=== PATIENT | female | born 1930 | race Caucasian/White ===

== ENCOUNTER → 2016-08-15 | Outpatient (REF) | payer MEDICARE ==
[~2016-08-15] MED LIST: /ALEN70TA; /PANT40TA; /PREG50CA PO; /WARF25TA; /WARF25TA PO; ACET65TA; ATIV0.5T3 PO; BISA10SU2; CALCCHW12; CEPH2CAP PO; COLA100C2; COUM1TAB; COUMADIN; DIAZ2TAB PO; DRIS50002 PO; EX-L5TAB; FOLI1TAB86 PO; HYDR-3363 PO; LIDO1DIS2 TD; LUTECAP2 PO; MEGA40SU; METAMUCIL; METO10TA2; MILKSUS; MIRA255PW PO; NORCOBULK PO; SENN8.6T14; SENO8.6T9 PO; THERGRAN; TRAM50TA2; TUMS500C PO; TYLE325T5 PO; ULTR50TA PO; VIBR100C PO; VITA100T2 PO; VITAD1000T PO; metamucil
== END ==
LOC: M SFHCPLAZ 16:45
PROVIDERS: ATTEND Internal Medicine
DX: R30.0 Dysuria (principal)

== ENCOUNTER → 2016-09-02 | Outpatient (REF) | payer MEDICARE ==
[~2016-09-02] MED LIST changes: +BAYE325T12 PO; +ESTR62CR PV; +VITA50003 PO
== END ==
LOC: M SFHCPLAZ 14:52
PROVIDERS: ATTEND Internal Medicine
DX: R32 Unspecified urinary incontinence (principal)

== ENCOUNTER → 2016-09-12 | Outpatient (REF) | payer MEDICARE ==
[~2016-09-12] MED LIST changes: +MAPA325T2 PO
== END ==
LOC: SKLAB3 07:39
PROVIDERS: ATTEND Family Medicine
DX: R50.9 Fever, unspecified (principal); R41.0 Disorientation, unspecified

== ENCOUNTER 2016-11-05 11:20 | Emergency (ER) | payer MEDICARE ==
[~2016-11-05] VITALS: Ht 160 cm; Wt 43.5 kg
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
--- NOTE | 2016-11-05 15:13 | REP ---
CT STUDY OF THE PELVIS WITHOUT CONTRAST: HISTORY: Bilateral groin pain. Question hip fracture or pelvic fracture. Comparison CT study of the pelvis is from October 31, 2016 done at [facility]. FINDINGS: There is diffuse osteopenia. Degenerative disc changes are noted at L5-S1 and L4-5. These lumbar vertebral bodies are preserved in height. There is an acute kyphosis at the upper portion of the third sacral segment consistent with an old healed sacral fracture. This is unchanged from 10/31/2016 as well as 11/07/[address] studies. It is not felt to be acute. No other evidence of sacral fracture is seen. Coccyx appear intact. Iliac bones are intact. There is osteoarthritis in the hips. There are pins in the proximal femurs bilaterally as reported previously. No proximal femur fracture is seen. 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 No pubic ramus fracture is appreciated. There is fairly extensive vascular calcification. No inguinal soft tissue mass adenopathy or cyst formation is seen. No uterine abnormality is noted. Uterus is tipped somewhat to the left appears to be retroverted. No free fluid is noted. IMPRESSION: 1. Status post pinning for old healed proximal femur fractures bilaterally. 2. 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 Diffuse osteoporosis. 3. Old stable fracture of the third sacral segment unchanged from 2015 prior study. 4. Extensive vascular calcification. 5. No acute fracture. Signed by Roel Keyes MD 11/05/2016 05:09 P
--- NOTE | 2016-11-05 15:21 | REP ---
CT LUMBAR SPINE WITHOUT CONTRAST: HISTORY: Right leg weakness. COMPARISON: 11/08/2014 There is no disc bulge or herniation at the L1-2 level. The L1 nerves exit the neural foramina without compression. A diffuse disc bulge is present at the L2-3 level. There is minimal compression of the thecal sac. The L2 nerves exit the neural foramina without compression. A diffuse disc bulge is present at the L3-4 level. There is hypertrophy of the ligamenta flava and posterior articulating facets. These findings produce minimal central canal stenosis. The L3 nerves exit the neural foramina without compression. A diffuse disc bulge is present at the L4-5 level. There is hypertrophy of the ligamenta flava and posterior articulating facets. These findings produce minimal central canal stenosis. The L4 nerves exit the neural foramina without compression. A diffuse disc bulge is present at the L5-S1 level. There is hypertrophy of the ligamenta flava and posterior articulating facets. These findings produce minimal central canal stenosis. The L5 nerves exit the neural foramina without compression. The L3-4 through L5-S1 intervertebral discs are decreased in height. Vacuum phenomenon is present at the L5-S1 level. These findings are consistent with disc degeneration. There are old compression fractures of the T12 and L2 vertebral bodies with severe height loss. There has been further height loss of the L2 vertebral body compared to the previous study. There is very minimal retropulsion at both levels. There is no subluxation. IMPRESSION: 1. Diffuse disc bulge at the L2-3 level with minimal thecal sac compression. This is a new finding. 2. Minimal central canal stenosis at the L3-4 through L5-S1 levels secondary to disc bulge, ligamentous and facet hypertrophy. 3. Old compression fractures of the T12 and L2 vertebral bodies with severe height loss. There has been further loss of height of the L2 vertebral body. Signed by Oc El MD 11/05/2016 03:31 P
--- NOTE | 2016-11-05 16:00 | REP ---
Clinical: Pain. Technique: AP and frog lateral views of the left femur. Comparison: Pelvic radiograph 80 11/07/2014. Findings: The patient is status post open reduction and fixation. Proximal femur appears stable when compared to prior examination including large likely post traumatic heterotopic osteophyte along the medial femoral metaphysis. Degenerative changes include near complete joint space obliteration and spurring along the acetabular margin. No obvious acute fracture dislocation. Impression: Osteopenia. Post traumatic/postoperative degenerative changes similar to 11/07/2014. No acute fracture dislocation of the femur noted. Signed by Herson Eaton MD 11/05/2016 03:52 P
[2016-11-05 16:58] VITALS: BP 119/56
== END 2016-11-05 17:07 | disposition home or self-care (01) ==
LOC: M ED 12:41
DX: M16.0 Bilateral primary osteoarthritis of hip (principal); M85.852 Other specified disorders of bone density and structure, left thigh; M81.0 Age-related osteoporosis without current pathological fracture; I70.0 Atherosclerosis of aorta; M51.26 Other intervertebral disc displacement, lumbar region; M48.06 Spinal stenosis, lumbar region; M48.07 Spinal stenosis, lumbosacral region; Z87.81 Personal history of (healed) traumatic fracture; I10 Essential (primary) hypertension; K52.9 Noninfective gastroenteritis and colitis, unspecified; E55.9 Vitamin D deficiency, unspecified; F41.9 Anxiety disorder, unspecified; Z87.891 Personal history of nicotine dependence; Z79.899 Other long term (current) drug therapy

== ENCOUNTER → 2016-11-15 | Outpatient (CLI) | payer MEDICARE ==
--- NOTE | 2016-11-15 14:25 | REP ---
REASON: Previous ORIF left hip with revision of internal fixation in 2007. There are no prior examinations which cover this area completely. After the intravenous administration of 19.73 millicuries of technetium 99m MDP, a triple phase bone scan of the pelvis was obtained with attention to the left femur. The flow images show focal increased radionuclide accumulation in the region of the left femur, some of which may be soft tissue in nature. Blood pool images show focal abnormal increased radionuclide accumulation in the proximal left femur and seen in conjunction with photopenia due to the internal fixation plate and multiple affixing screws. Delayed imaging shows persistence of the abnormal focal uptake which surrounds the photopenic fixation plate. IMPRESSION: Abnormal increased left femoral radionuclide accumulation as described above consistent with stress fracture and/or loosening. The appearance of those two entities can be identical on triple phase bone scanning. Signed by Wilbert Agosto DO 11/15/2016 03:23 P
== END ==
LOC: M RAD 10:06
PROVIDERS: ATTEND Orthopaedic Surgery
DX: R93.7 Abnormal findings on diagnostic imaging of other parts of musculoskeletal system (principal)

== ENCOUNTER → 2016-11-25 | Outpatient (REF) | payer MEDICARE ==
[~2016-11-25] MED LIST changes: +VITA1CAP40 PO; -VITA50003 PO
[2016-11-25 17:56] LABS: BASO # 0.1 K/mm3 (0.0-0.2); BASO % 1.3 % (0.0-1.0); EOS # 0.3 K/mm3 (0.0-0.50); EOS % 6.3 % (0.0-3.0); LARGE UNSTAINED CELL # 0.2 K/mm3 (0.0-0.4); LARGE UNSTAINED CELL % 2.8 % (0.0-4.0); LYMPH # 1.6 K/mm3 (1.5-4.5); LYMPH % 27.7 % (24.0-44.0); MEAN CORPUSCULAR HEMOGLOBIN 32.1 pg (27.0-33.0); MEAN CORPUSCULAR HGB CONC 33.1 g/dl (32.0-36.5); MONO # 0.4 K/mm3 (0.0-0.8); MONO % 7.1 % (0.0-5.0); NEUTROPHILS # 2.9 K/mm3 (1.8-7.7); NEUTROPHILS % 54.9 % (36.0-66.0); PLATELET COUNT, AUTOMATED 264 k/mm3 (150-450); WHITE BLOOD COUNT 5.2 K/mm3 (4.0-10.0)
[2016-11-25 18:54] LABS: ERYTHROCYTE SEDIMENTATION RATE 30 mm/hr (0-42)
== END ==
LOC: M LABDRAW1 15:13
PROVIDERS: ATTEND Orthopaedic Surgery
DX: M16.0 Bilateral primary osteoarthritis of hip (principal); M19.071 Primary osteoarthritis, right ankle and foot

== ENCOUNTER → 2016-12-06 | Outpatient (REF) | payer MEDICARE ==
[~2016-12-06] MED LIST changes: -VITA1CAP40 PO; +VITA50003 PO
== END ==
LOC: M SFHCPLAZ 15:01
PROVIDERS: ATTEND Internal Medicine
DX: R30.0 Dysuria (principal)

== ENCOUNTER → 2017-09-03 | Outpatient (REF) | payer MEDICARE ==
[2017-09-03 18:48] LABS: APPEARANCE, URINE CLEAR (CLEAR); BACTERIA, URINE AUTO NEGATIVE (NEGATIVE); BILIRUBIN, URINE AUTO NEGATIVE (NEGATIVE); BLOOD, URINE BLOOD NEGATIVE (NEGATIVE); COLOR, URINE YELLOW (YELLOW); GLUCOSE, URINE (UA) AUTO NEGATIVE (NEGATIVE); KETONE, URINE AUTO NEGATIVE (NEGATIVE); LEUKOCYTE ESTERASE, URINE AUTO 1+ (NEGATIVE); NITRITE, URINE AUTO NEGATIVE (NEGATIVE); PROTEIN, URINE AUTO NEGATIVE (NEGATIVE); RBC, URINE AUTO 4 /HPF (0-3); SPECIFIC GRAVITY URINE AUTO 1.014 (1.002-1.035); SQUAMOUS EPITHELIAL CELL UR AU 0 /HPF (0-6); UROBILINOGEN, URINE AUTO 0.2 mg/dL (0.0-2.0); WBC, URINE AUTO 3 /HPF (0-3)
== END ==
LOC: M SFHCPLAZ 10:45
DX: R30.0 Dysuria (principal)
CPT/HCPCS: 81001

== ENCOUNTER 2017-11-19 10:00 | Emergency (ER) | payer MEDICARE ==
[2017-11-19 10:43] LABS: BASO # 0.1 10^3/uL (0.0-0.2); BASO % 1.9 % (0.0-1.0); EOS # 0.3 10^3/uL (0.0-0.50); EOS % 6.9 % (0.0-3.0); HEMATOCRIT 39.8 % (36.0-47.0); HEMOGLOBIN 13.4 g/dl (12.0-15.5); LYMPH # 2.2 10^3/uL (1.5-4.5); LYMPH % 45.5 % (24.0-44.0); MEAN CORPUSCULAR HEMOGLOBIN 31.5 pg (27.0-33.0); MEAN CORPUSCULAR HGB CONC 33.7 g/dl (32.0-36.5); MEAN CORPUSCULAR VOLUME 93.4 fl (80.0-96.0); MONO # 0.4 10^3/uL (0.0-0.8); MONO % 9.2 % (0.0-5.0); NEUTROPHILS # 1.8 10^3/uL (1.8-7.7); NEUTROPHILS % 36.5 % (36.0-66.0); PLATELET COUNT, AUTOMATED 240 10^3/uL (150-450); RED BLOOD COUNT 4.26 10^6/uL (4.00-5.40); RED CELL DISTRIBUTION WIDTH 12.1 % (11.5-14.5); WHITE BLOOD COUNT 4.8 10^3/uL (4.0-10.0)
[2017-11-19 10:57] LABS: INR 0.88
[2017-11-19 10:58] LABS: PARTIAL THROMBOPLASTIN TIME 31.8 SECONDS (26.8-37.9)
[2017-11-19 11:07] LABS: ANION GAP 7 MEQ/L (8-16); BLOOD UREA NITROGEN 14 MG/DL (7-18); CALCIUM LEVEL 9.1 MG/DL (8.8-10.2); CARBON DIOXIDE LEVEL 27 MEQ/L (21-32); CHLORIDE LEVEL 101 MEQ/L (98-107); CK-MB VALUE MASS 2.8 NG/ML (<3.6); CPK CREATINE PHOSPHOKINASE 134 U/L (26-192); CREATININE FOR GFR 0.76 MG/DL (0.55-1.30); GLOMERULAR FILTRATION RATE > 60.0 (>32); GLUCOSE, FASTING 91 MG/DL (70-100); MB/CK RELATIVE INDEX 2.08 (< OR =4); SODIUM LEVEL 135 MEQ/L (136-145); TROPONIN I < 0.02 NG/ML (< 0.10)
== END 2017-11-19 12:45 | disposition home or self-care (01) ==
LOC: M ED 10:00
DX: M79.601 Pain in right arm (principal); R20.2 Paresthesia of skin; Z87.440 Personal history of urinary (tract) infections; I10 Essential (primary) hypertension; F41.9 Anxiety disorder, unspecified; F32.9 Major depressive disorder, single episode, unspecified
CPT/HCPCS: 71045

== ENCOUNTER 2017-11-28 13:22 | Emergency (ER) | payer MEDICARE | END 2017-11-28 15:29 | disposition home or self-care (01) | LOC: M ED 13:22 | DX: M50.30 Other cervical disc degeneration, unspecified cervical region (principal); M43.06 Spondylolysis, lumbar region; M19.90 Unspecified osteoarthritis, unspecified site; R91.1 Solitary pulmonary nodule; I10 Essential (primary) hypertension; J44.9 Chronic obstructive pulmonary disease, unspecified; M81.0 Age-related osteoporosis without current pathological fracture; M21.961 Unspecified acquired deformity of right lower leg; Z87.891 Personal history of nicotine dependence | CPT/HCPCS: 73521 ==

== ENCOUNTER 2017-11-28 16:21 | Emergency (ER) | payer MEDICARE ==
[2017-11-28] MEDS: PERCOCET 5MG/325MG TAB PO (20:32)
== END 2017-11-28 20:53 | disposition home or self-care (01) ==
LOC: M ED 16:21
DX: M54.9 Dorsalgia, unspecified (principal); F41.9 Anxiety disorder, unspecified; F32.9 Major depressive disorder, single episode, unspecified; Z87.891 Personal history of nicotine dependence

== ENCOUNTER 2017-12-08 14:26 | Inpatient (IN) | payer MEDICARE ==
[2017-12-08] MEDS: MORPHINE 4 MG/ML 1ML VIAL/SYRINGE (J2270) IV (17:03)
[2017-12-08 17:37] LABS: BASO # 0.1 10^3/uL (0.0-0.2); BASO % 1.8 % (0.0-1.0); EOS # 0.2 10^3/uL (0.0-0.50); EOS % 3.2 % (0.0-3.0); HEMATOCRIT 43.4 % (36.0-47.0); HEMOGLOBIN 14.6 g/dl (12.0-15.5); IMMATURE GRANULOCYTE % 0.2 % (0-3.0); LYMPH # 1.5 10^3/uL (1.5-4.5); MEAN CORPUSCULAR HEMOGLOBIN 31.5 pg (27.0-33.0); MEAN CORPUSCULAR HGB CONC 33.6 g/dl (32.0-36.5); MEAN CORPUSCULAR VOLUME 93.7 fl (80.0-96.0); MONO # 0.5 10^3/uL (0.0-0.8); NEUTROPHILS # 3.3 10^3/uL (1.8-7.7); NEUTROPHILS % 58.8 % (36.0-66.0); PLATELET COUNT, AUTOMATED 278 10^3/uL (150-450); RED BLOOD COUNT 4.63 10^6/uL (4.00-5.40); RED CELL DISTRIBUTION WIDTH 12.3 % (11.5-14.5); WHITE BLOOD COUNT 5.7 10^3/uL (4.0-10.0)
[2017-12-08 17:44] LABS: ANION GAP 10 MEQ/L (8-16); BLOOD UREA NITROGEN 39 MG/DL (7-18); CALCIUM LEVEL 9.4 MG/DL (8.8-10.2); CARBON DIOXIDE LEVEL 25 MEQ/L (21-32); CHLORIDE LEVEL 103 MEQ/L (98-107); CREATININE FOR GFR 0.69 MG/DL (0.55-1.30); GLOMERULAR FILTRATION RATE > 60.0 (>32); GLUCOSE, FASTING 82 MG/DL (70-100); POTASSIUM SERUM 4.7 MEQ/L (3.5-5.1); SODIUM LEVEL 138 MEQ/L (136-145)
[2017-12-08 17:59] LABS: KETONE, URINE AUTO RFX 1+ mg/dL (NEGATIVE); MUCUS, URINE RFX SMALL (NEGATIVE); NITRITE, URINE AUTO RFX NEGATIVE (NEGATIVE); RBC, URINE AUTO RFX 4 /HPF (0-3); SPECIFIC GRAVITY UR AUTO RFX 1.027 (1.002-1.035); SQUAM EPITHELIAL CELL UR AURFX 2 /HPF (0-6)
[2017-12-08 18:22] LABS: LEUKOCYTE ESTERASE UR AUTO RFX 1+ (NEGATIVE); WBC, URINE AUTO RFX 12 /HPF (0-3)
[2017-12-08] MEDS: NS 1,000 ML IV (21:38)
[2017-12-09 06:20] LABS: BASO # 0.1 10^3/uL (0.0-0.2); BASO % 1.2 % (0.0-1.0); EOS # 0.2 10^3/uL (0.0-0.50); EOS % 3.8 % (0.0-3.0); HEMATOCRIT 39.8 % (36.0-47.0); HEMOGLOBIN 13.5 g/dl (12.0-15.5); IMMATURE GRANULOCYTE % 0.3 % (0-3.0); LYMPH # 1.8 10^3/uL (1.5-4.5); MEAN CORPUSCULAR HEMOGLOBIN 31.6 pg (27.0-33.0); MEAN CORPUSCULAR HGB CONC 33.9 g/dl (32.0-36.5); MEAN CORPUSCULAR VOLUME 93.2 fl (80.0-96.0); MONO # 0.6 10^3/uL (0.0-0.8); MONO % 10.6 % (0.0-5.0); NEUTROPHILS # 3.2 10^3/uL (1.8-7.7); NEUTROPHILS % 54.1 % (36.0-66.0); PLATELET COUNT, AUTOMATED 244 10^3/uL (150-450); RED BLOOD COUNT 4.27 10^6/uL (4.00-5.40); RED CELL DISTRIBUTION WIDTH 12.2 % (11.5-14.5); WHITE BLOOD COUNT 5.8 10^3/uL (4.0-10.0)
[2017-12-09] MEDS: HEPARIN SOD (PORCINE) 5000 UNITS/ML VIAL SC ×3 (06:31→22:01)
[2017-12-09 06:34] LABS: ANION GAP 12 MEQ/L (8-16); BLOOD UREA NITROGEN 35 MG/DL (7-18); CALCIUM LEVEL 8.8 MG/DL (8.8-10.2); CARBON DIOXIDE LEVEL 22 MEQ/L (21-32); CHLORIDE LEVEL 106 MEQ/L (98-107); CREATININE FOR GFR 0.45 MG/DL (0.55-1.30); GLOMERULAR FILTRATION RATE > 60.0 (>32); GLUCOSE, FASTING 69 MG/DL (70-100); MAGNESIUM LEVEL 1.7 MG/DL (1.8-2.4); SODIUM LEVEL 140 MEQ/L (136-145)
[2017-12-09] MEDS: PANTOPRAZOLE 40MG TAB (PROTONIX) PO (09:21)
[2017-12-09] MEDS: DOCUSATE SODIUM 100 MG CAP PO ×2 (09:21→22:01)
[2017-12-09] MEDS: NS 1,000 ML IV (10:08)
[2017-12-09] MEDS: MAG SULF 1GM/100ML (MAG RUN) 1 GM in APPROPRIATE DILUENT 1 EA IV ×2 (11:00→11:34)
[2017-12-09] MEDS: ACETAMINOPHEN TAB 650MG DOSE (2X325MG) PO (11:49)
[2017-12-10] MEDS: PERCOCET 5MG/325MG TAB PO ×4 (01:07→20:43)
[2017-12-10] MEDS: HEPARIN SOD (PORCINE) 5000 UNITS/ML VIAL SC ×3 (06:18→20:44)
[2017-12-10] MEDS: PANTOPRAZOLE 40MG TAB (PROTONIX) PO (09:51)
[2017-12-10] MEDS: DOCUSATE SODIUM 100 MG CAP PO ×2 (09:51→20:42)
[2017-12-11] MEDS: HEPARIN SOD (PORCINE) 5000 UNITS/ML VIAL SC ×3 (05:52→20:56)
[2017-12-11] MEDS: PANTOPRAZOLE 40MG TAB (PROTONIX) PO (09:09)
[2017-12-11] MEDS: DOCUSATE SODIUM 100 MG CAP PO ×2 (09:09→20:56)
[2017-12-11] MEDS: MIRALAX *UNIT DOSE* 17GM PACKET PO (20:56)
[2017-12-12] MEDS: HEPARIN SOD (PORCINE) 5000 UNITS/ML VIAL SC (06:36)
[2017-12-12] MEDS: PANTOPRAZOLE 40MG TAB (PROTONIX) PO (08:11)
[2017-12-12] MEDS: DOCUSATE SODIUM 100 MG CAP PO (08:12)
== END 2017-12-12 11:43 | DRG 552 ==
LOC: M ED INP 21:38 → M MSPAV 12-11 21:50 → M ED 14:26 → M MSPAV 12-09 01:29
DX: S32.020A Wedge compression fracture of second lumbar vertebra, initial encounter for closed fracture (principal); M54.9 Dorsalgia, unspecified; F10.10 Alcohol abuse, uncomplicated; E55.9 Vitamin D deficiency, unspecified; F03.90 Unspecified dementia, unspecified severity, without behavioral disturbance, psychotic disturbance, mood disturbance, and anxiety; K59.00 Constipation, unspecified; J44.9 Chronic obstructive pulmonary disease, unspecified; M81.0 Age-related osteoporosis without current pathological fracture; Z87.891 Personal history of nicotine dependence; W18.30XA Fall on same level, unspecified, initial encounter; Y92.009 Unspecified place in unspecified non-institutional (private) residence as the place of occurrence of the external cause

== ENCOUNTER → 2017-12-16 | Outpatient (REF) ==
[2017-12-16 10:35] LABS: HEMATOCRIT 42.3 % (36.0-47.0); HEMOGLOBIN 14.5 g/dl (12.0-15.5); MEAN CORPUSCULAR HEMOGLOBIN 31.7 pg (27.0-33.0); MEAN CORPUSCULAR HGB CONC 34.3 g/dl (32.0-36.5); MEAN CORPUSCULAR VOLUME 92.4 fl (80.0-96.0); PLATELET COUNT, AUTOMATED 224 10^3/uL (150-450); RED BLOOD COUNT 4.58 10^6/uL (4.00-5.40); RED CELL DISTRIBUTION WIDTH 12.4 % (11.5-14.5); WHITE BLOOD COUNT 5.1 10^3/uL (4.0-10.0)
[2017-12-16 11:15] LABS: ANION GAP 16 MEQ/L (8-16); BLOOD UREA NITROGEN 25 MG/DL (7-18); CALCIUM LEVEL 9.1 MG/DL (8.8-10.2); CARBON DIOXIDE LEVEL 20 MEQ/L (21-32); CHLORIDE LEVEL 100 MEQ/L (98-107); CREATININE FOR GFR 0.57 MG/DL (0.55-1.30); GLOMERULAR FILTRATION RATE > 60.0 (>32); GLUCOSE, FASTING 100 MG/DL (70-100); POTASSIUM SERUM 3.8 MEQ/L (3.5-5.1); SODIUM LEVEL 136 MEQ/L (136-145)
== END ==
DX: F03.90 Unspecified dementia, unspecified severity, without behavioral disturbance, psychotic disturbance, mood disturbance, and anxiety (principal)

== ENCOUNTER → 2018-01-20 | Outpatient (REF) | payer MEDICARE ==
[2018-01-20 11:30] LABS: HEMATOCRIT 33.7 % (36.0-47.0); HEMOGLOBIN 11.1 g/dl (12.0-15.5); MEAN CORPUSCULAR HEMOGLOBIN 31.1 pg (27.0-33.0); MEAN CORPUSCULAR HGB CONC 32.9 g/dl (32.0-36.5); MEAN CORPUSCULAR VOLUME 94.4 fl (80.0-96.0); PLATELET COUNT, AUTOMATED 321 10^3/uL (150-450); RED BLOOD COUNT 3.57 10^6/uL (4.00-5.40); RED CELL DISTRIBUTION WIDTH 13.9 % (11.5-14.5)
[2018-01-20 11:53] LABS: ANION GAP 9 MEQ/L (8-16); BLOOD UREA NITROGEN 17 MG/DL (7-18); CALCIUM LEVEL 8.5 MG/DL (8.8-10.2); CARBON DIOXIDE LEVEL 25 MEQ/L (21-32); CHLORIDE LEVEL 106 MEQ/L (98-107); CREATININE FOR GFR 0.65 MG/DL (0.55-1.30); GLOMERULAR FILTRATION RATE > 60.0 (>32); GLUCOSE, FASTING 108 MG/DL (70-100); SODIUM LEVEL 140 MEQ/L (136-145)
== END ==
DX: F03.90 Unspecified dementia, unspecified severity, without behavioral disturbance, psychotic disturbance, mood disturbance, and anxiety (principal)
CPT/HCPCS: 80048

== ENCOUNTER 2018-02-19 13:08 | Outpatient (RCR) | payer MEDICARE | END 2018-03-15 | LOC: M PT 13:08 | DX: Z51.89 Encounter for other specified aftercare (principal); M79.605 Pain in left leg | CPT/HCPCS: 97110 ==

== ENCOUNTER → 2018-03-13 | Outpatient (REF) | payer MEDICARE | LOC: M SFHCPLAZ 11:10 | DX: R35.0 Frequency of micturition (principal) | CPT/HCPCS: 87086 ==

== ENCOUNTER 2018-03-17 12:48 | Outpatient (RCR) | payer MEDICARE | END 2018-04-15 | LOC: M PT 12:48 | DX: Z51.89 Encounter for other specified aftercare (principal); M79.605 Pain in left leg | CPT/HCPCS: 97110 ==

== ENCOUNTER → 2018-04-03 | Outpatient (REF) | payer MEDICARE ==
[2018-04-03 16:13] LABS: ALBUMIN 3.6 GM/DL (3.2-5.2); ALBUMIN/GLOBULIN RATIO 1.03 (1.00-1.93); ALKALINE PHOSPHATASE 132 U/L (45-117); ALT/SGPT 24 U/L (12-78); ANION GAP 8 MEQ/L (8-16); AST/SGOT 25 U/L (7-37); BILIRUBIN,TOTAL 0.4 MG/DL (0.2-1.0); BLOOD UREA NITROGEN 19 MG/DL (7-18); CALCIUM LEVEL 8.7 MG/DL (8.8-10.2); CARBON DIOXIDE LEVEL 28 MEQ/L (21-32); CHLORIDE LEVEL 102 MEQ/L (98-107); CREATININE FOR GFR 0.69 MG/DL (0.55-1.30); GLOMERULAR FILTRATION RATE > 60.0 (>32); GLUCOSE, FASTING 91 MG/DL (70-100); POTASSIUM SERUM 4.2 MEQ/L (3.5-5.1); SODIUM LEVEL 138 MEQ/L (136-145); TOTAL PROTEIN 7.1 GM/DL (6.4-8.2)
== END ==
LOC: M SFHCPLAZ 14:17
DX: F10.10 Alcohol abuse, uncomplicated (principal); M81.0 Age-related osteoporosis without current pathological fracture
CPT/HCPCS: 80053

== ENCOUNTER 2018-04-17 09:17 | Inpatient (IN) | payer MEDICARE ==
[2018-04-17 10:30] LABS: BASO # 0.1 10^3/uL (0.0-0.2); BASO % 1.1 % (0.0-1.0); EOS # 0.4 10^3/uL (0.0-0.50); EOS % 6.9 % (0.0-3.0); HEMATOCRIT 41.8 % (36.0-47.0); HEMOGLOBIN 13.5 g/dl (12.0-15.5); IMMATURE GRANULOCYTE % 0.2 % (0-3.0); LYMPH # 2.4 10^3/uL (1.5-4.5); LYMPH % 43.5 % (24.0-44.0); MEAN CORPUSCULAR HEMOGLOBIN 31.7 pg (27.0-33.0); MEAN CORPUSCULAR HGB CONC 32.3 g/dl (32.0-36.5); MEAN CORPUSCULAR VOLUME 98.1 fl (80.0-96.0); MONO # 0.5 10^3/uL (0.0-0.8); MONO % 9.1 % (0.0-5.0); NEUTROPHILS # 2.1 10^3/uL (1.8-7.7); NEUTROPHILS % 39.2 % (36.0-66.0); PLATELET COUNT, AUTOMATED 248 10^3/uL (150-450); RED BLOOD COUNT 4.26 10^6/uL (4.00-5.40); RED CELL DISTRIBUTION WIDTH 12.5 % (11.5-14.5); WHITE BLOOD COUNT 5.4 10^3/uL (4.0-10.0)
[2018-04-17 10:41] LABS: INR 0.87; PROTHROMBIN TIME 11.9 SECONDS (12.1-14.4)
[2018-04-17 10:42] LABS: PARTIAL THROMBOPLASTIN TIME 25.8 SECONDS (25.4-37.6)
[2018-04-17 11:07] LABS: ANION GAP 6 MEQ/L (8-16); BLOOD UREA NITROGEN 21 MG/DL (7-18); CALCIUM LEVEL 9.1 MG/DL (8.8-10.2); CARBON DIOXIDE LEVEL 27 MEQ/L (21-32); CHLORIDE LEVEL 105 MEQ/L (98-107); CPK CREATINE PHOSPHOKINASE 113 U/L (26-192); CREATININE FOR GFR 0.77 MG/DL (0.55-1.30); GLOMERULAR FILTRATION RATE > 60.0 (>32); GLUCOSE, FASTING 84 MG/DL (70-100); POTASSIUM SERUM 4.2 MEQ/L (3.5-5.1); SODIUM LEVEL 138 MEQ/L (136-145); TROPONIN I < 0.02 NG/ML (< 0.10)
[2018-04-17 11:08] LABS: MB/CK RELATIVE INDEX 1.77 (< OR =4)
[2018-04-17] MEDS: NS 1,000 ML IV ×2 (14:24→23:30)
[2018-04-18] MEDS: NS 1,000 ML IV (05:42)
[2018-04-18 08:32] LABS: HEMATOCRIT 36.8 % (36.0-47.0); HEMOGLOBIN 12.2 g/dl (12.0-15.5); MEAN CORPUSCULAR HEMOGLOBIN 31.9 pg (27.0-33.0); MEAN CORPUSCULAR HGB CONC 33.2 g/dl (32.0-36.5); MEAN CORPUSCULAR VOLUME 96.1 fl (80.0-96.0); PLATELET COUNT, AUTOMATED 224 10^3/uL (150-450); RED BLOOD COUNT 3.83 10^6/uL (4.00-5.40); RED CELL DISTRIBUTION WIDTH 12.8 % (11.5-14.5)
[2018-04-18 08:51] LABS: ESTIMATED AVERAGE GLUCOSE 108 MG/DL (60-110); HEMOGLOBIN A1c 5.4 %
[2018-04-18 09:01] LABS: ANION GAP 8 MEQ/L (8-16); BLOOD UREA NITROGEN 14 MG/DL (7-18); CALCIUM LEVEL 8.7 MG/DL (8.8-10.2); CARBON DIOXIDE LEVEL 23 MEQ/L (21-32); CHLORIDE LEVEL 109 MEQ/L (98-107); CREATININE FOR GFR 0.52 MG/DL (0.55-1.30); GLOMERULAR FILTRATION RATE > 60.0 (>32); GLUCOSE, FASTING 88 MG/DL (70-100); POTASSIUM SERUM 3.7 MEQ/L (3.5-5.1); SODIUM LEVEL 140 MEQ/L (136-145); TROPONIN I < 0.02 NG/ML (< 0.10)
[2018-04-18 09:28] LABS: CHOLESTEROL LEVEL 174 MG/DL (<200); CHOLESTEROL RISK RATIO 3.163 (<5); HDL CHOLESTEROL 55 MG/DL (>40); LDL CHOLESTEROL 105 MG/DL (<100); NON-HDL-C 119 MG/DL; TRIGLYCERIDES LEVEL 72 MG/DL (<150)
[2018-04-18] MEDS: ATORVASTATIN 20 MG TAB PO (10:20)
[2018-04-18] MEDS: ASPIRIN 81 MG CHEW TABLET PO (10:20)
[2018-04-19] MEDS: ASPIRIN 81 MG CHEW TABLET PO (07:53)
[2018-04-19] MEDS: ATORVASTATIN 20 MG TAB PO (07:53)
[2018-04-19] MEDS: CYANOCOBALAMIN 500 MCG TAB PO (14:23)
[2018-04-19] MEDS: POTASSIUM CHLORIDE 10 MEQ SR TABLET PO (14:24)
[2018-04-20] MEDS: ASPIRIN 81 MG CHEW TABLET PO (10:18)
[2018-04-20] MEDS: CYANOCOBALAMIN 500 MCG TAB PO (10:18)
[2018-04-20] MEDS: ATORVASTATIN 20 MG TAB PO (10:19)
[2018-04-21] MEDS: ASPIRIN 81 MG CHEW TABLET PO (08:18)
[2018-04-21] MEDS: CYANOCOBALAMIN 500 MCG TAB PO (08:18)
[2018-04-21] MEDS: ATORVASTATIN 20 MG TAB PO (08:18)
[2018-04-21 14:06] LABS: BEDSIDE GLUCOSE 79 MG/DL (83-110)
== END 2018-04-21 12:30 | disposition home or self-care (01) | DRG 66 ==
LOC: M ED 09:17 → M ED INP 13:16 → M MSPAV 20:43
DX: I63.9 Cerebral infarction, unspecified (principal); I69.391 Dysphagia following cerebral infarction; J44.9 Chronic obstructive pulmonary disease, unspecified; I10 Essential (primary) hypertension; Z79.82 Long term (current) use of aspirin; Z79.899 Other long term (current) drug therapy; M19.90 Unspecified osteoarthritis, unspecified site; M81.0 Age-related osteoporosis without current pathological fracture; E53.8 Deficiency of other specified B group vitamins; Z87.891 Personal history of nicotine dependence

== ENCOUNTER 2018-04-28 13:50 | Outpatient (RCR) | payer MEDICARE | END 2018-05-15 | LOC: M PT 13:50 | DX: M79.605 Pain in left leg (principal) | CPT/HCPCS: 97110 ==

== ENCOUNTER 2018-06-02 13:15 | Outpatient (RCR) | payer MEDICARE ==
[~2018-06-02 13:15] MED LIST changes: +ALEN70TA57 PO; +CHIL81CH2 PO; +CYCL5TAB PO; -DRIS50002 PO; +DRIS50003 PO; +PRAV20TA2 PO; +TYLE325C PO; +TYLE500T78 PO; +VITA10002 PO; -VITA50003 PO; +VITA50005 PO
== END 2018-06-15 ==
LOC: M PT 13:15
PROVIDERS: ATTEND Internal Medicine
DX: Z51.89 Encounter for other specified aftercare (principal); M79.605 Pain in left leg
CPT/HCPCS: 97110; 97530; G8979; G8980